=== PATIENT | female | born 2000 | race Caucasian/White ===

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

== ENCOUNTER 2020-12-14 15:32 | Emergency (ER) | payer MEDICAID ==
[~2020-12-14] VITALS: Ht 175.3 cm; Wt 64.0 kg
[~2020-12-14 15:32] MED LIST changes: +ACCUNEB SO1.25 MG/1 INH; +ONDANSETRON HCL4 M2 PO
[2020-12-14 16:10] LABS: URINE BILIRUBIN NEGATIVE (Negative); URINE BLOOD NEGATIVE (Negative); URINE CLARITY CLEAR; URINE COLOR YELLOW; URINE GLUCOSE-RANDOM NEGATIVE (Negative); URINE KETONES TRACE (Negative); URINE LEUKOCYTES-REFLEX NEGATIVE (Negative); URINE NITRITE-REFLEX NEGATIVE (Negative); URINE PROTEIN NEGATIVE (Negative); URINE SPECIFIC GRAVITY >= 1.030 (1.005-1.030); URINE UROBILINOGEN 0.2 E.U./dl (0.2-1.0)
[2020-12-14] MEDS ORDERED: DIFLUCAN150 M1 PO (17:58)
[2020-12-14] MEDS ORDERED: VALTREX1000 MG PO (17:58)
[2020-12-14 18:08] VITALS: BP 109/67
== END 2020-12-14 18:09 | disposition home or self-care (01) ==
LOC: M.ERS 15:32
PROVIDERS: Physician Assistant
DX: N76.0 Acute vaginitis (principal); J45.909 Unspecified asthma, uncomplicated; Z98.890 Other specified postprocedural states; Z91.040 Latex allergy status; Z20.822 Contact with and (suspected) exposure to COVID-19